=== PATIENT | male | born 1990 | race Hispanic/Latino ===

== ENCOUNTER 2018-03-12 07:00 | Outpatient (CLI) | payer BC ==
--- NOTE | 2018-03-12 08:05 | ULT ---
TESTICULAR ULTRASOUND: Date: 03/12/18 INDICATION: Scrotal mass noted x2 weeks. FINDINGS: Ultrasound of both testicles show microlithiasis. The right testicle appears unremarkable, measuring 3.4 x 4.5 x 3.3 cm. Color Doppler and spectral suhail lysis demonstrates normal blood flow to the right testicle. The left testicle demonstrates normal blood flow with color Doppler and spectral analysis. Left testi cular size is symmetric, measuring 3.3 x 4.2 x 2.2 cm. However, there is a hypoechoic mass in the inferior left testicle measuring approximately 1.0 cm. In addition, there is an irregularly shaped hypoechoic area in the mid left testicle measuring approx imately 1.0 x 0.5 x 0.5 cm. There is a cystic nodule in the more superior left testicle measuring 0.3 x 0.3 cm. No hydrocele. IMPRESSION: 1. Bilateral microlithiasis. 2. 1.0 cm solid mass inferior left testicle. Irregularly shaped area of hypoechogenicity in the mid left testicle. Small cystic nodule in the superior left testicle. Recommend urologic consultation. POS: [facility]
== END 2018-03-12 07:01 | disposition home or self-care (01) ==
LOC: BICULT 07:00
PROVIDERS: ATTEND Family Medicine
DX: N50.9 Disorder of male genital organs, unspecified (principal)
CPT/HCPCS: 76870; 93976

== ENCOUNTER 2019-08-01 07:49 | Outpatient (CLI) | payer BC ==
--- NOTE | 2019-08-01 08:07 | RAD ---
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 No focal consolidation, pleural fluid or pneumothorax evident. IMPRESSION: No evidence for an acute cardiopulmonary process.
--- NOTE | 2019-08-01 08:49 | CT ---
EXAM: CT abdomen and pelvis with IV contrast PROVIDED CLINICAL HISTORY: Testicular cancer COMPARISON: None FINDINGS: The visualized bases are free of significant opacity. Diffuse fatty infiltration of the liver. The solid abdominal organs demonstrate an otherwise unremark able CT appearance. There is no bowel dilatation, inflammatory fat stranding, free fluid or lymph node enlargement appare nt. The appendix appears normal. The regional major vascular structures appear unremarkable. The osseous structures demonstrate no concerning lytic or blastic lesions. IMPRESSION: No evidence for metastatic disease.
[2019-08-01] MEDS ORDERED: Iopamidol-370 76% 500 ML 1 ML ONE (13:32)
== END 2019-08-01 07:50 | disposition home or self-care (01) ==
LOC: BICCT 07:49
PROVIDERS: ATTEND Urology
DX: C62.92 Malignant neoplasm of left testis, unspecified whether descended or undescended (principal)
CPT/HCPCS: 71045; 74177; Q9967

== ENCOUNTER 2023-10-28 02:56 | Emergency (ER) | payer OTHER | END 2023-10-28 04:12 | LOC: EEVIPCON 02:56 → ERS 02:56 | DX: Z02.89 Encounter for other administrative examinations (principal); E11.9 Type 2 diabetes mellitus without complications; I10 Essential (primary) hypertension; E78.00 Pure hypercholesterolemia, unspecified; Z79.84 Long term (current) use of oral hypoglycemic drugs | CPT/HCPCS: 99282 ==